=== PATIENT | female | born 1975 | race Caucasian/White ===

== ENCOUNTER 2017-03-29 09:06 | Day surgery (SDC) | payer BC ==
[~2017-03-29] VITALS: Ht 168.9 cm; Wt 52.7 kg
[~2017-03-29 09:06] MED LIST: BUPIVACAINE/PF 0.5% ONE; EPINEPHRINE 1 MG/ML, 1ML ONE
[2017-03-29] MEDS ORDERED: LACTATED RINGERS 1,000 ML IV SCH (09:34)
[2017-03-29] MEDS ORDERED: FENTANYL PF 250 MCG/5ML ONE (09:41)
[2017-03-29] MEDS ORDERED: MIDAZOLAM 1 MG/ML, 2ML ONE (09:41)
[2017-03-29] MEDS ORDERED: ZINC50TA47 PO (09:44)
[2017-03-29] MEDS ORDERED: ASCO10004 PO (09:44)
[2017-03-29] MEDS ORDERED: SELE50TA2 PO (09:44)
[2017-03-29] MEDS ORDERED: LYSI500T PO (09:44)
[2017-03-29] MEDS ORDERED: ASHWAGANDHA PO (09:44)
[2017-03-29] MEDS ORDERED: LICO1POW PO (09:44)
[2017-03-29] MEDS ORDERED: CATS CLAW PO (09:44)
[2017-03-29] MEDS ORDERED: MAGN400T36 PO (09:44)
[2017-03-29 09:52] VITALS: BP 94/60
[2017-03-29] MEDS ORDERED: LABETALOL 5MG/ML, 20ML IV PRN (10:30)
[2017-03-29] MEDS ORDERED: MEPERIDINE/PF 25MG/0.5ML IVPush PRN (10:30)
[2017-03-29] MEDS ORDERED: HYDROmorphone 1 MG/ML, 1ML IV PRN (10:30)
[2017-03-29] MEDS ORDERED: ONDANSETRON 2MG/ML, 2ML IVPush PRN (10:30)
[2017-03-29] MEDS ORDERED: FENTANYL PF 100 MCG/2ML IV PRN (10:30)
[2017-03-29] MEDS ORDERED: PROMETHAZINE 25 MG/ML, 1ML IV PRN (10:30)
[2017-03-29] MEDS ORDERED: ACETAMINOPHEN 325 MG TABLET PO PRN (10:30)
[2017-03-29] MEDS ORDERED: OXYcodone 5 MG/5 ML ORAL.SOL UDC PO PRN (10:30)
[2017-03-29] MEDS ORDERED: hydrALAzine 20 MG/ML, 1ML IV PRN (10:30)
[2017-03-29] MEDS ORDERED: ROCURONIUM 10 MG/ML,10ML ONE ×2 (11:14→11:27)
[2017-03-29] MEDS ORDERED: DEXAMETHASONE 4 MG/ML, 1ML ONE ×2 (11:14→11:17)
[2017-03-29] MEDS ORDERED: ONDANSETRON 2MG/ML, 2ML ONE (11:14)
[2017-03-29] MEDS ORDERED: PROPOFOL 10 MG/ML, 20ML ONE (11:27)
[2017-03-29] MEDS ORDERED: KETOROLAC 30 MG/1 ML ONE (11:40)
== END 2017-03-29 14:40 ==
LOC: OUT 09:06
PROVIDERS: ATTEND Surgery
DX: K42.9 Umbilical hernia without obstruction or gangrene (principal)
CPT/HCPCS: 49585; J0171; J1100; J1885; J2250; J2405; J2704; J3010; J3490; J7120